=== PATIENT | female | born 1975 | race Hispanic/Latino ===

== ENCOUNTER 2017-11-09 18:52 | Emergency (ER) | payer OTHER, SELFPAY ==
--- NOTE | 2017-11-09 20:24 | ER ---
Nurse's Notes [facility] Name: Toma Jordan Age: 42 yrs Sex: Female : 1975 Arrival Date: 11/09/2017 Time: 18:53 Bed 16 Private MD: Diagnosis: Acute sinusitis;Cough Presentation: 11/09 18:57 Presenting complaint: Patient states: padilla had had bronchitis for 10days and i have been tw2 non stop coughing and feeling shortness of breath. Transition of care: patient was not received from another setting of care. Onset of symptoms was November 09, 2017. Care prior to arrival: None. 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 - Social history:: Smoking status: Patient/guardian denies using tobacco. Screenin:01 Abuse screen: Denies threats or abuse. Denies injuries from another. Nutritional wh screening: No deficits noted. Tuberculosis screening: No symptoms or risk factors identified. Fall Risk None identified. Assessment: 20:10 General: Appears in no apparent distress. comfortable, Behavior is calm, cooperative, wh appropriate for age. Pain: Denies pain. Neuro: Level of Consciousness is awake, alert, obeys commands, Oriented to person, place, time, situation. Cardiovascular: Denies chest pain, Heart tones S1 S2. Respiratory: Airway is patent Respiratory effort is even, unlabored, Respiratory pattern is regular, symmetrical, Breath sounds with wheezes bilaterally. GI: Abdomen is flat, non-distended. : No signs and/or symptoms were reported regarding the genitourinary system. EENT: No signs and/or symptoms were reported regarding the EENT system. Derm: Skin is intact, is healthy with good turgor, Skin is pink, warm \T\ dry. normal. Musculoskeletal: Range of motion: intact in all extremities. 21:05 Reassessment: Patient appears in no apparent distress at this time. Patient and/or wh family updated on plan of care and expected duration. Pain level reassessed. Patient is alert, oriented x 3, equal unlabored respirations, skin warm/dry/pink. Vital Signs: 18:57 BP 109 / 75; Pulse 93; Resp 17; Temp 98.9; Pulse Ox 99% on R/A; Weight 68.04 kg (R); tw2 Height 5 ft. 6 in. (167.64 cm); Pain 6/10; 20:30 BP 115 / 55; Pulse 88; Resp 18; Temp 98.8; Pulse Ox 100% on R/A; wh 18:57 Body Mass Index 24.21 (68.04 kg, 167.64 cm) tw2 ED Course: 18:53 Patient arrived in ED. as 18:57 Triage completed. tw2 18:58 Arm band placed on. tw2 19:34 Pau Spivey FNP-C is PHCP. snw 19:34 Michael Kaufman MD is Attending Physician. snw 20:05 Patient has correct armband on for positive identification. Bed in low position. Call light in reach. Side rails up X 1. Pulse ox on. NIBP on. 20:40 Monika Hernandez is Primary Nurse. 21:06 No provider procedures requiring assistance completed. Patient did not have IV access during this emergency room visit. Administered Medications: 20:49 Drug: Zithromax 500 mg Route: PO; 21:08 Follow up: Response: No adverse reaction 20:49 Drug: Tussionex Pennkinetic ER 5 ml Route: PO; 21:07 Follow up: Response: No adverse reaction Outcome: 20:23 Discharge ordered by . snw 21:06 Discharged to home ambulatory, with family. 21:06 Condition: good 21:06 Discharge instructions given to patient, family, Instructed on discharge instructions, follow up and referral plans. medication usage, POC Demonstrated understanding of Prescriptions given X 2. 21:08 Patient left the ED. Signatures: Pau Spivey FNP-C RETAIL HELPER-Sondra Perez Tara, RN RN tw2 Monika Hernandez
--- NOTE | 2017-11-09 20:24 | EDPHYS ---
Physician Documentation [facility] Name: Toma Jordan Age: 42 yrs Sex: Female : 1975 Arrival Date: 11/09/2017 Time: 18:53 Bed 16 Private MD: ED Physician Michael Kaufman HPI: 11/09 20:27 This 42 yrs old Female presents to ER via Wheelchair with complaints of Asthma snw Exacerbation. 20:27 The patient presents to the emergency department with wheezing, the patient was snw reported to have intractable cough. Onset: The symptoms/episode began/occurred suddenly, 4 day(s) ago, and became persistent. Modifying factors: The symptoms are alleviated by nothing. Associated signs and symptoms: Pertinent positives: headache, nausea, vomiting. Severity of symptoms: At their worst the symptoms were moderate. The patient has experienced a previous episode. The patient has not recently seen a physician. Spouse with similar s/s x 10days. 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 - Social history:: Smoking status: Patient/guardian denies using tobacco. ROS: 20:29 Constitutional: Negative for fever, chills, and weight loss, Eyes: Negative for injury, snw pain, redness, and discharge, ENT: Negative for injury, pain, and discharge, Neck: Negative for injury, pain, and swelling, Cardiovascular: Negative for chest pain, palpitations, and edema, Back: Negative for injury and pain, : Negative for injury, bleeding, discharge, and swelling, MS/Extremity: Negative for injury and deformity, Skin: Negative for injury, rash, and discoloration. 20:29 Respiratory: Positive for cough, with no reported sputum. 20:29 Abdomen/GI: Positive for nausea, vomiting. 20:29 Neuro: Positive for headache. Exam: 20:28 Constitutional: This is a well developed, well nourished patient who is awake, alert, snw and in no acute distress. Head/Face: Normocephalic, atraumatic. Eyes: Pupils equal round and reactive to light, extra-ocular motions intact. Lids and lashes normal. Conjunctiva and sclera are non-icteric and not injected. Cornea within normal limits. Periorbital areas with no swelling, redness, or edema. ENT: Nares patent. No nasal discharge, no septal abnormalities noted. Tympanic membranes are erythematous, fluid behind TM bilaterally, and external auditory canals are clear. Oropharynx with no redness, swelling, or masses, exudates, or evidence of obstruction, uvula midline. Mucous membranes moist. Neck: Trachea midline, no thyromegaly or masses palpated, and no cervical lymphadenopathy. Supple, full range of motion without nuchal rigidity, or vertebral point tenderness. No Meningismus. Chest/axilla: Normal chest wall appearance and motion. Nontender with no deformity. No lesions are appreciated. Cardiovascular: Regular rate and rhythm with a normal S1 and S2. No gallops, murmurs, or rubs. Normal PMI, no JVD. No pulse deficits. Respiratory: Lungs have equal breath sounds bilaterally, clear to auscultation and percussion. No rales, rhonchi or wheezes noted. No increased work of breathing, no retractions or nasal flaring. Abdomen/GI: Soft, non-tender, with normal bowel sounds. No distension or tympany. No guarding or rebound. No evidence of tenderness throughout. Back: No spinal tenderness. No costovertebral tenderness. Full range of motion. Skin: Warm, dry with normal turgor. Normal color with no rashes, no lesions, and no evidence of cellulitis. MS/ Extremity: Pulses equal, no cyanosis. Neurovascular intact. Full, normal range of motion. Neuro: Awake and alert, GCS 15, oriented to person, place, time, and situation. Cranial nerves II-XII grossly intact. Motor strength 5/5 in all extremities. Sensory grossly intact. Cerebellar exam normal. Normal gait. Vital Signs: 18:57 BP 109 / 75; Pulse 93; Resp 17; Temp 98.9; Pulse Ox 99% on R/A; Weight 68.04 kg (R); tw2 Height 5 ft. 6 in. (167.64 cm); Pain 6/10; 20:30 BP 115 / 55; Pulse 88; Resp 18; Temp 98.8; Pulse Ox 100% on R/A; wh 18:57 Body Mass Index 24.21 (68.04 kg, 167.64 cm) tw2 MDM: 19:34 Patient medically screened. snw 20:31 Data reviewed: vital signs, nurses notes. Data interpreted: Pulse oximetry: on room air snw is 99 %. Interpretation: normal. Counseling: I had a detailed discussion with the patient and/or guardian regarding: the historical points, exam findings, and any diagnostic results supporting the discharge/admit diagnosis, the need for outpatient follow up, to return to the emergency department if symptoms worsen or persist or if there are any questions or concerns that arise at home. Special discussion: Based on the history and exam findings, there is no indication for further emergent testing or inpatient evaluation. I discussed with the patient/guardian the need to see the primary care provider for further evaluation of the symptoms. Administered Medications: 20:49 Drug: Zithromax 500 mg Route: PO; 21:08 Follow up: Response: No adverse reaction 20:49 Drug: Tussionex Pennkinetic ER 5 ml Route: PO; 21:07 Follow up: Response: No adverse reaction Disposition: 11/10 07:13 Co-signature as Attending Physician, Michael Kaufman MD I agree with the assessment and stef plan of care. Disposition: 11/09/17 20:23 Discharged to Home. Impression: Acute sinusitis, Cough. - Condition is Stable. - Discharge Instructions: Asthma, Adult, Sinusitis, Adult, Cough, Adult. - Prescriptions for Tessalon Perles 100 mg Oral Capsule - take 1 capsule by ORAL route every 8 hours As needed; 15 capsule. Zithromax 500 mg Oral Tablet - take 1 tablet by ORAL route once daily for 5 days; 5 tablet. - Work release form, Medication Reconciliation Form, Thank You Letter, Antibiotic Education, Prescription Opioid Use form. - Follow up: Private Physician; When: 2 - 3 days; Reason: Recheck today's complaints, Continuance of care, Re-evaluation by your physician. Follow up: Emergency Department; When: As needed; Reason: Worsening of condition. Signatures: Michael Kaufman MD MD cha Therrien, Shelly, STAFF REPORTER-C STAFF REPORTER-Csnw Alee Alvarez RN RN tw2 Monika Hernandez
[2017-11-09] MEDS ORDERED: AZITHROMYCIN 250 MG TAB ONE (20:42)
[2017-11-09] MEDS ORDERED: HYDROCODONE/CHLORPHEN 5 ML/OSYR ONE (20:42)
== END 2017-11-09 21:08 | disposition home or self-care (01) ==
LOC: ER 18:52
DX: J01.90 Acute sinusitis, unspecified (principal); Z88.0 Allergy status to penicillin
CPT/HCPCS: 99283